=== PATIENT | female | born 1995 | race Caucasian/White ===

== ENCOUNTER 2019-01-03 12:31 | Outpatient (CLI) | payer OTHER ==
[2019-01-03] MEDS ORDERED: CEFADROXIL500 MG PO (18:22)
== END 2019-01-04 07:49 | disposition home or self-care (01) ==
LOC: OBS/DEL 12:31
DX: O23.43 Unspecified infection of urinary tract in pregnancy, third trimester (principal); O35.8XX0 Maternal care for other (suspected) fetal abnormality and damage, not applicable or unspecified; Z34.83 Encounter for supervision of other normal pregnancy, third trimester

== ENCOUNTER 2019-02-09 11:35 | Inpatient (IN) | payer OTHER ==
[~2019-02-09] VITALS: Ht 157.5 cm; Wt 98.0 kg
[~2019-02-09 11:35] MED LIST: CEFADROXIL500 MG PO
[2019-02-16] MEDS ORDERED: PRENATABS FA T1 EACH PO (16:55)
[2019-02-22] MEDS ORDERED: Tylenol Extra Streng PO (10:49)
[2019-02-22] MEDS ORDERED: IBUPROFEN800 MG PO (10:49)
== END 2019-02-22 12:01 | disposition home or self-care (01) | DRG 785 ==
LOC: OB/GYN 02-16 15:00 → O/R 02-20 05:30 → OB/GYN 02-20 07:00
PROVIDERS: ADMIT Obstetrics & Gynecology
PROC: 0UL70ZZ Occlusion of Bilateral Fallopian Tubes, Open Approach (ICD-10-PCS; 2019-02-20)
PROC: 4A1HXCZ Monitoring of Products of Conception, Cardiac Rate, External Approach (ICD-10-PCS; 2019-02-20)
PROC: 10D00Z1 Extraction of Products of Conception, Low, Open Approach (ICD-10-PCS; principal; 2019-02-20 07:00)
DX: O82 Encounter for cesarean delivery without indication (principal); Z3A.39 39 weeks gestation of pregnancy; Z37.0 Single live birth; Z30.2 Encounter for sterilization